=== PATIENT | female | born 2000 | race Caucasian/White ===

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

== ENCOUNTER 2021-10-22 10:36 | Emergency (ER) | payer OTHER ==
[2021-10-22 11:01] VITALS: BP 124/90; PULSE 90; TEMP 97; BMI 30.2
[2021-10-22] MEDS ORDERED: IBUPROFEN 600 MG TABLET (FP) PO ONE ×2 (12:01→12:02)
[2021-10-22] MEDS ORDERED: CIPROFLOXACIN 0.3% EYE DROPS 5 ML BOTTLE ONE (12:04)
[2021-10-22] MEDS ORDERED: CIPROFLOXACIN 0.3% EYE DROPS 5 ML BOTTLE OD ONE (12:04)
== END 2021-10-22 12:36 | disposition home or self-care (01) ==
LOC: JERFT 10:36 → JER 10:36 → JERFT 12:36
DX: H16.101 Unspecified superficial keratitis, right eye (principal)
CPT/HCPCS: 99283-25

== ENCOUNTER 2022-02-18 17:51 | Emergency (ER) | payer OTHER ==
[2022-02-18 17:55] VITALS: BP 142/88; PULSE 99; RESP 18; TEMP 98.3; BMI 24.7
== END 2022-02-18 18:40 | disposition home or self-care (01) ==
LOC: JER 17:51 → JERFT 17:51
PROC: 0HQKXZZ Repair Right Lower Leg Skin, External Approach (ICD-10-PCS; principal; 2022-02-18)
DX: S81.811A Laceration without foreign body, right lower leg, initial encounter (principal); W26.8XXA Contact with other sharp object(s), not elsewhere classified, initial encounter; Y93.31 Activity, mountain climbing, rock climbing and wall climbing
CPT/HCPCS: 99282-25